=== PATIENT | male | born 1960 | race Caucasian/White ===

== ENCOUNTER 2016-06-13 15:46 | Emergency (ER) | payer OTHER ==
[~2016-06-13] VITALS: Ht 182.9 cm; Wt 95.5 kg
[~2016-06-13 15:46] MED LIST: FISH OIL500 MG PO; HYDROCHLOROTHIA25 MG PO; LIBRIUM25 MG PO; LISINOPRIL20 MG PO; MULTIVITAMIN1 EAC2; OXAZEPAM15 MG PO; THIAMINE HCL100 MG PO
[2016-06-13 16:06] VITALS: BP 121/95
== END 2016-06-13 18:28 | disposition left against medical advice (07) ==
LOC: EME 15:46
DX: F10.20 Alcohol dependence, uncomplicated (principal); Z53.21 Procedure and treatment not carried out due to patient leaving prior to being seen by health care provider